=== PATIENT | female | born 1995 | race African-American/Black ===

== ENCOUNTER 2017-05-26 08:29 | Emergency (ER) | payer MEDICAID ==
[~2017-05-26] VITALS: Ht 162.6 cm; Wt 50.0 kg
[~2017-05-26 08:29] MED LIST: PREN-88 PO
[2017-05-26] MEDS ORDERED: IBUPROFEN 600MG TABLET PO ONE (09:30)
[2017-05-26 09:59] LABS: CLARITY URINE CLEAR (CLEAR); COLOR URINE YELLOW (YELLOW); GLUCOSE URINE NEGATIVE (NEGATIVE); KETONES URINE NEGATIVE (NEGATIVE); LEUKOCYTE ESTERASE URINE NEGATIVE (NEGATIVE); NITRITE URINE NEGATIVE (NEGATIVE); OCCULT BLOOD URINE 3+ (NEGATIVE); PH URINE 6.5 (4.5-8.0); PROTEIN URINE NEGATIVE (NEGATIVE); SPECIFIC GRAVITY URINE 1.009 (1.005-1.030); UROBILINOGEN URINE 0.2 E.U./dL (0.2-1.0)
[2017-05-26 10:26] LABS: *AMPHETAMINES SCREEN URINE NEGATIVE (NEGATIVE); *BENZODIAZEPINES SCREEN URINE NEGATIVE (NEGATIVE); *COCAINE SCREEN URINE NEGATIVE (NEGATIVE); CANNABINOID URINE SCREEN NEGATIVE (NEGATIVE); METHADONE URINE SCREEN NEGATIVE (NEGATIVE); OPIATES URINE SCREEN NEGATIVE (NEGATIVE); PHENCYCLIDINE URINE SCREEN NEGATIVE (NEGATIVE)
[2017-05-26 10:27] LABS: *BARBITURATES SCREEN URINE NEGATIVE (NEGATIVE)
[2017-05-26] MEDS ORDERED: BACITRACIN ZINC 15GM TUBE TOP ONE (12:00)
[2017-05-26] MEDS ORDERED: HYDROCODONE/ACETAMINOPHEN 5/325MG TABLET PO ONE (12:15)
[2017-05-26 12:59] VITALS: BP 105/69
== END 2017-05-26 13:17 | disposition home or self-care (01) ==
LOC: ER 08:55
DX: S63.501A Unspecified sprain of right wrist, initial encounter (principal); S50.11XA Contusion of right forearm, initial encounter; V49.88XA Car occupant (driver) (passenger) injured in other specified transport accidents, initial encounter; Y93.89 Activity, other specified; Y92.89 Other specified places as the place of occurrence of the external cause; Y99.8 Other external cause status
CPT/HCPCS: 29125; 70450; 72125; 73090; 73110; 73552; 73562; 80305; 81001; 81025; 99285

== ENCOUNTER 2017-09-24 20:06 | Emergency (ER) | payer MEDICAID ==
[~2017-09-24] VITALS: Ht 162.6 cm; Wt 58.0 kg
[2017-09-24 23:30] LABS: CLARITY URINE CLEAR (CLEAR); COLOR URINE YELLOW (YELLOW); GLUCOSE URINE NEGATIVE (NEGATIVE); KETONES URINE NEGATIVE (NEGATIVE); LEUKOCYTE ESTERASE URINE NEGATIVE (NEGATIVE); NITRITE URINE NEGATIVE (NEGATIVE); OCCULT BLOOD URINE 3+ (NEGATIVE); PROTEIN URINE NEGATIVE (NEGATIVE); SPECIFIC GRAVITY URINE 1.015 (1.005-1.030)
[2017-09-25 00:44] LABS: BASOPHILS % 0.3 % (0.0-2.0); EOSINOPHILS % 1.6 % (0.0-5.0); HEMATOCRIT. 36.4 % (36.0-48.0); HEMOGLOBIN. 12.4 g/dL (12.0-16.0); LYMPHOCYTES % 35.5 % (20.0-50.0); MEAN CORPUSCULAR HEMOGLOBIN 29.6 pg (28.0-32.0); MEAN CORPUSCULAR VOLUME 86.8 fL (81.0-99.0); MEAN PLATELET VOLUME 8.7 fl (7.4-10.4); MONOCYTES % 6.4 % (2.0-8.0); NEUTROPHILS % 56.2 % (40.0-76.0); PLATELET 235 x1000/uL (130-400); RED CELL DISTRIBUTION WIDTH 14.3 % (11.6-14.6)
[2017-09-25 01:03] LABS: CARBON DIOXIDE 26 mEq/L (21-32); CHLORIDE 105 mEq/L (98-107)
[2017-09-25] MEDS ORDERED: KETOROLAC 60MG/2ML VIAL IM ONE (01:15)
[2017-09-25 04:58] VITALS: BP 100/55
== END 2017-09-25 05:01 | disposition home or self-care (01) ==
LOC: ER 20:06
DX: R10.2 Pelvic and perineal pain (principal)
CPT/HCPCS: 36415; 76856; 80048; 81001; 81025; 85025; 99285; Z7610

== ENCOUNTER 2017-11-11 14:51 | Emergency (ER) | payer MEDICAID ==
[~2017-11-11] VITALS: Ht 162.6 cm; Wt 59.0 kg
[2017-11-11] MEDS ORDERED: SODIUM CHLORIDE 0.9% 1,000 ML IV ONE (18:41)
[2017-11-11] MEDS ORDERED: KETOROLAC 30MG/ML VIAL IV STA (18:41)
[2017-11-11] MEDS ORDERED: DEXAMETHASONE 10 MG/ML VIAL IV ONE (18:45)
[2017-11-11] MEDS ORDERED: AMOXICILLIN/POTASSIUM CLAVULANATE 875/125MG TAB PO ONE (19:15)
[2017-11-11] MEDS ORDERED: CLINDAMYCIN PHOSPHATE 300MG/2ML VIAL IM ONE (19:15)
[2017-11-11 20:30] VITALS: BP 111/72
== END 2017-11-11 20:30 | disposition home or self-care (01) ==
LOC: ER 15:28
DX: J36 Peritonsillar abscess (principal); H92.01 Otalgia, right ear
CPT/HCPCS: 81025; 96361; 96372; 96374; 96375; 99285; J1100; J1885; J3490; J7030; Z7610